=== PATIENT | female | born 1985 | race Two or more races ===

== ENCOUNTER 2016-10-04 10:02 | Emergency (ER) | payer OTHER ==
[~2016-10-04] VITALS: Ht 167.6 cm; Wt 147.0 kg
--- NOTE | 2016-10-04 10:25 | Emergency Room Report ---
History of Present Illness General Chief Complaint: Lower Back Pain or Injury Source: Patient Present Illness HPI Patient fell on August 26. She was sitting on a chair at work when the chair fell over. She hit her back. No LOC. Has been treating conservatively. She wasn't seen at that time. She's had increasing back pain. Now radiating down both sides and in her hips L > R. Also radiates into buttock. She denies any numbness any fevers and hasn't dysuria. She's on her period right now. Having problems with sleep. Motrin with minimal help. Pain /10 now, constant , aching and burning. No weakness, saddle numbness, fever, incontinence, blood thinners, oncologic problems. Denies prior back problems. No NVD, CP, dyspnea. She has continued to work. Allergies: Coded Allergies: No Known Allergies (Unverified , 10/04/16) Patient History Past Medical History: see triage record Social History: Denies: smoking Social History Narrative works for [employer] Last Menstrual Period: 10/01/16 Now: No Reviewed Nursing Documentation: PMH: Agreed, PSxH: Agreed Nursing Documentation-PMH Past Medical History: No Stated History Review of Systems All Other Systems: negative except mentioned in HPI Physical Exam Vital Signs Date Time Temp Pulse Resp B/P Pulse Ox O2 Delivery O2 Flow Rate FiO2 10/04/16 10:05 98.2 72 15 127/77 98 Room Air Sp02 EP Interpretation: reviewed, normal General Appearance: well appearing, no apparent distress, GCS 15, obese Head: normocephalic Eyes: bilateral eye PERRL, bilateral eye normal inspection ENT: moist mucus membranes Neck: full range of motion, supple, no bony tend Respiratory: chest non-tender, lungs clear, normal breath sounds Cardiovascular #1: regular rate, rhythm Cardiovascular #2: 2+ radial (R) Gastrointestinal: normal inspection, normal bowel sounds, non tender, no mass, non-distended, overweight Musculoskeletal: gait/station normal, normal range of motion, no calf tenderness, pelvis stable, other - lumbar tenderness, not bony, able to sit and stand with some discomfort Neurologic: alert, oriented x3, motor strength/tone normal, DTRs symmetric, sensory intact, cerebellar normal, normal gait, speech normal Reflexes: 2+ knee (R), 2+ knee (L), 1+ ankle (R), 1+ ankle (L) Skin: normal inspection, warm/dry Medical Decision Making Diagnostic Impression: Primary Impression: Back contusion Qualified Codes: S20.229A - Contusion of unspecified back wall of thorax, initial encounter Additional Impression: Obesity Qualified Codes: E66.9 - Obesity, unspecified ER Course Patient presents 1 month post back injury with increasing pain. No red flag symptoms. Ddx: strain, sprain, disk disease, DJD, UTI amongst others. Xrays indicated. Analgesia ordered. Xrays with DJD. UA negative (menses). Improved. Patient stable for outpatient observation and treatment. Laboratory Tests Test 10/04/16 10:37 Urine Color Pale yellow Urine Appearance Slightly cloudy Urine pH 5 (4.5-8.0) Urine Specific [place] 1.020 (1.005-1.035) Urine Protein Negative (NEGATIVE) Urine Glucose (UA) Negative (NEGATIVE) Urine Ketones Negative (NEGATIVE) Urine Occult Blood 5+ (NEGATIVE) H Urine Nitrite Negative (NEGATIVE) Urine Bilirubin Negative (NEGATIVE) Urine Urobilinogen Normal MG/DL (0.0-1.0) Urine Leukocyte Esterase 1+ (NEGATIVE) H Urine RBC 40-60 /HPF (0 - 2) H Urine WBC 2-4 /HPF (0 - 2) Urine Squamous Epithelial Cells Few /LPF (NONE/OCC) Urine Bacteria Few /HPF (NONE) Urine HCG, Qualitative Negative Other X-Ray Diagnostic Results Other X-Ray Diagnostic Results : X-Ray Ordered: L/S spine EP Interpretation: Yes Findings: no fractures, no dislocation, no soft tissue swelling, other - djd Number of Views: 3 Last Vital Signs Date Time Temp Pulse Resp B/P Pulse Ox O2 Delivery O2 Flow Rate FiO2 10/04/16 13:40 70 16 117/71 96 Room Air 10/04/16 12:00 98.3 Status: improved Disposition: HOME, SELF-CARE Condition: Improved Scripts Methocarbamol* (ROBAXIN*) 500 Mg Tablet 500 MG PO TID, #10 TAB 0 Refills Prov: Sriram Espinal M.D. 10/04/16 Tramadol Hcl* (ULTRAM*) 50 Mg Tablet 50 MG ORAL Q6H Y for For Pain, #6 TAB 0 Refills Prov: Sriram Espinal M.D. 10/04/16 Ibuprofen* (MOTRIN*) 600 Mg Tablet 600 MG ORAL Q6H Y for For Pain, #20 TAB Prov: Sriram Espinal M.D. 10/04/16 Sriram Espinal M.D. October 04, 2016 10:25
[2016-10-04 10:45] LABS: APPEARANCE,URINE SLIGHTLY CLOUDY; KETONES,URINE NEGATIVE (NEGATIVE); LEUKOCYTE ESTERASE ,URINE 1+ (NEGATIVE); NITRITE,URINE NEGATIVE (NEGATIVE); PH,URINE 5 (4.5-8.0); PROTEIN,URINE NEGATIVE (NEGATIVE); UROBILINOGEN,URINE NORMAL MG/DL (0.0-1.0)
[2016-10-04 10:55] LABS: BACTERIA,URINE FEW /HPF; RBC,URINE 40-60 /HPF (0 - 2); SQUAMOUS EPITHELIAL CELL,UR FEW /LPF (NONE/OCC)
--- NOTE | 2016-10-04 12:36 | Diagnostic Imaging Report ---
Indication: TRAUMA Technique: 3 views of the lumbar spine Comparison: None Findings:Bony alignment is normal. Vertebral body heights are preserved. There is minimal degenerative disc space narrowing at the thoracolumbar junction. Other disc spaces are preserved. Pedicles are intact. Sacral arches are preserved. Sacroiliac joint spaces are preserved Impression:Minimal degenerative changes. No acute process
[2016-10-04] MEDS ORDERED: ROBAXIN500 MG PO (13:18)
[2016-10-04] MEDS ORDERED: TRAMADOL HCL50 MG ORAL (13:18)
[2016-10-04] MEDS ORDERED: IBUPROFEN600 MG ORAL (13:18)
[2016-10-04 13:40] VITALS: BP 117/71
== END 2016-10-04 13:40 | disposition home or self-care (01) ==
LOC: EMR 10:24
DX: S20.229A Contusion of unspecified back wall of thorax, initial encounter (principal); E66.9 Obesity, unspecified; W06.XXXA Fall from bed, initial encounter; Y93.9 Activity, unspecified; Y99.0 Civilian activity done for income or pay; M25.552 Pain in left hip; M25.551 Pain in right hip; M47.896 Other spondylosis, lumbar region
CPT/HCPCS: 72020; 81003; 81025; 99284

== ENCOUNTER 2019-11-15 16:28 | Emergency (ER) | payer SELFPAY ==
[~2019-11-15] VITALS: Ht 167.6 cm; Wt 117.9 kg
[2019-11-15 16:22] VITALS: BP 129/76
--- NOTE | 2019-11-15 16:22 | NUR ---
ED Nurse Note: pt walked in to ed for c/o sorethroat with sob x 5 days. pt states she was with a friend that was tested positive. sp02 in RA is 96%
[~2019-11-15 16:28] MED LIST: IBUPROFEN600 MG ORAL; ROBAXIN500 MG PO; TRAMADOL HCL50 MG ORAL
--- NOTE | 2019-11-15 16:57 | Emergency Room Report ---
History of Present Illness General Chief Complaint: Sore Throat Source: Patient Present Illness HPI 61-year-old female presents to the emergency department complaining of sore throat, cough and shortness of breath since Monday. She denies pain at this time. Patient denies fevers or chills. Patient reports being in contact with someone who tested positive for COVID-19. Patient denies significant past medical history. She denies headache, photophobia, neck pain or stiffness. Denies CP, Palpitations, LOC, AMS, dizziness, Changes in Vision, Sensation, paresthesias, or a sudden severe headache. 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 Patient History Past Medical History: see triage record Past Surgical History: none Pertinent Family History: none Last Menstrual Period: na Now: No Reviewed Nursing Documentation: PMH: Agreed; PSxH: Agreed Nursing Documentation-PMH Past Medical History: No Stated History Review of Systems All Other Systems: negative except mentioned in HPI Physical Exam Vital Signs Date Time Temp Pulse Resp B/P (MAP) Pulse Ox O2 Delivery O2 Flow Rate FiO2 11/15/19 16:18 98.4 59 18 129/76 (93) 96 Room Air Sp02 EP Interpretation: reviewed, normal General Appearance: no apparent distress, alert, GCS 15, non-toxic Head: normocephalic, atraumatic Eyes: bilateral eye normal inspection, bilateral eye PERRL ENT: hearing grossly normal, normal pharynx, normal voice, uvula midline, moist mucus membranes, other - No erythema, exudates or tonsillar swelling Neck: full range of motion Respiratory: chest non-tender, lungs clear, normal breath sounds, no respiratory distress, no accessory muscle use, no wheezing, speaking full sentences Cardiovascular #1: regular rate, rhythm, no edema Musculoskeletal: back normal, normal range of motion, gait/station normal, non- tender Neurologic: alert, motor strength/tone normal, oriented x3, sensory intact, responsive, speech normal Psychiatric: judgement/insight normal Lymphatic: no adenopathy Medical Decision Making PA Attestation Dr. Acosta is my supervising Physician whom patient management has been discussed with. Diagnostic Impression: Primary Impression: Sore throat Additional Impression: Cough in adult ER Course 61-year-old female presents to the emergency department complaining of sore throat, cough and shortness of breath since Monday. She denies pain at this time. Patient denies fevers or chills. Patient reports being in contact with someone who tested positive for COVID-19. Patient denies significant past medical history. She denies headache, photophobia, neck pain or stiffness. Denies CP, Palpitations, LOC, AMS, dizziness, Changes in Vision, Sensation, paresthesias, or a sudden severe headache. Ddx considered but are not limited to: pharyngitis, strep, ASSIST[employer] PROF[employer]OR [employer] FAMILY [employer]UDIES, ludwigs angina, URI, COVID-19 just to name a few. Vital signs: are WNL, pt. is afebrile H&PE are most consistent with: Mild URI symptoms. No evidence of acute bacterial infection at this time. ORDERS: None required at this time as the diagnosis is clinical ED INTERVENTIONS: none required at this time. -I do not identify an emergent condition at this time. With current presentation , pt. is stable for close outpatient follow up and conservative treatment. D/ w pt. to return promptly to ED with worsening or new symptoms.- Pt. verbalizes' understanding and agreement with proposed treatment plan.proposed treatment plan. This patient was evaluated in the context of the global COVID-19 pandemic, which necessitated consideration that the patient might be at risk for infection with the SARS-COV-2 virus that causes COVID-19. Institutional protocols and algorithms that pertaining to the evaluation of patients at risk for COVID-19 are in a state of rapid change based on information released by multiple regulatory bodies including the CDC and federal and state organizations. These policies and algorithms were followed during the patient' s care in the emergency department DISCHARGE: At this time pt. is stable for d/c to home. Will provide printed patient care instructions, and any necessary prescriptions. Care plan and follow up instructions have been discussed with the patient prior to discharge. Last Vital Signs Date Time Temp Pulse Resp B/P (MAP) Pulse Ox O2 Delivery O2 Flow Rate FiO2 11/15/19 16:22 98.4 59 18 129/76 96 Room Air Disposition: HOME, SELF-CARE Condition: Stable Scripts D-Methorphan Hb/Prometh Hcl* (PROMETHAZINE-DM SYRUP*) 118 Ml Syrup 5 ML ORAL Q6H PRN for For Cough, #120 ML 0 Refills Prov: Elizabeth Todd 11/15/19 Acetaminophen* (TYLENOL EXTRA STRENGTH*) 500 Mg Tablet 500 MG ORAL Q6H PRN for Mild Pain/Temp > 100.5, #20 TAB 0 Refills Prov: Elizabeth Todd 11/15/19 Patient Instructions: Cough, Adult, [id number], Sore Throat Additional Instructions: ~ ~ An emergent medical condition has not been identified based on this patients presentation, exam and any necessary testing/imaging. The patient is determined to be stable for outpatient follow-up and management of symptoms by a primary care provider. Take medications as directed. Follow up with a Primary Care Provider in 3-5 days, even if your symptoms have resolved. --Please review list of non-emergent outpatient COVID-19 testing sites. Return sooner to ED if new symptoms occur, or current symptoms become worse. - Please note that this Emergency Department Report was dictated using [employer] order clerk technology software, occasionally this can lead to erroneous entry secondary to interpretation by the dictation equipment. Elizabeth Todd Nov 15, 2019 16:57
[2019-11-15] MEDS ORDERED: TYLENOL EXTRA500 MG ORAL (16:58)
[2019-11-15] MEDS ORDERED: PROMETHAZINE-D118 ML ORAL (16:58)
[2019-11-15 17:09] VITALS: BP 122/80
--- NOTE | 2019-11-15 17:09 | NUR ---
ER DISCHARGE NOTE: Patient is cleared to be discharged per ERMD, pt is aox4, on room air, with stable vital signs. pt was given dc and prescription instructions, pt was able to verbalize understanding, pt id band removed without complications. pt is able to ambulate with steady gait. pt took all belongings.
== END 2019-11-15 17:09 | disposition home or self-care (01) ==
LOC: EDBD 16:28 → EMR 16:58
DX: R07.0 Pain in throat (principal); R05 Cough; Z20.828 Contact with and (suspected) exposure to other viral communicable diseases
CPT/HCPCS: 99282